=== PATIENT | female | born 1970 | race Caucasian/White ===

== ENCOUNTER → 2017-01-17 | Outpatient (CLI) | payer OTHER ==
[~2017-01-17] VITALS: Ht 165.1 cm; Wt 91.2 kg
[~2017-01-17] MED LIST: ACCUNEB0.63 MG/3 INH; AMITIZA 24 MCG24 MCG PO; BELSOMRA20 MG PO; BUTRANS1 EAC1 TOP; COMBIVENT INH; EFFEXOR XR37.5 MG PO; HCTZ; HUMIRA40 MG/0.1 SQ; HYDROCHLOROTHIA25 M2 PO; HYTRIN 1 MG CAP1 MG PO; HYTRIN 2MG CAPSU2 M1 PO; IBUPROFEN 600600 M1 PO; JANUVIA100 MG PO; KLONOPIN0.5 MG PO; LATUDA40 MG PO; LEVAQUIN 500 M500 MG PO; LORAZEPAM 0.50.5 MG PO; METFORMIN 500500 MG PO; PROAIR HFA8.5 GM INH; RANITIDINE HCL300 M1 PO; REMERON15 MG PO; SPIRIVA INH; SYNTHROID125 MCG PO; SYNTHROID25 MCG PO; VENLAFAXINE HC225 MG PO; ZETIA10 MG PO
[2017-01-17 09:39] VITALS: BP 96/62
== END ==
LOC: MRI 08:34
DX: M25.521 Pain in right elbow (principal)
CPT/HCPCS: 62110; 62900; 70005